=== PATIENT | male | born 1985 | race Caucasian/White ===

== ENCOUNTER 2017-02-21 20:06 | Emergency (ER) | payer SELFPAY ==
[~2017-02-21] VITALS: Ht 177.8 cm; Wt 81.6 kg
[2017-02-21 20:25] VITALS: BP 132/74
--- NOTE | 2017-02-21 20:30 | PHYS DOC ---
Adult General Chief Complaint Chief Complaint: SKIN PROBLEM HPI HPI Patient is a 31 year old male presents to the emergency department [facility]. Patient was evaluated yesterday by his primary care provider diagnosis poison camilla. He was given a steroid shot and placed on prednisone. Patient states that he wants to make sure he gets his prednisone in custodial. He has no request from the emergency department. The patient is very belligerent, cussing at staff as well as myself. Review of Systems Review of Systems Constitutional: Denies fever or chills [] Eyes: Denies change in visual acuity, redness, or eye pain [] HENT: Denies nasal congestion or sore throat [] Respiratory: Denies cough or shortness of breath [] Cardiovascular: No additional information not addressed in HPI [] GI: Denies abdominal pain, nausea, vomiting, bloody stools or diarrhea [] : Denies dysuria or hematuria [] Musculoskeletal: Denies back pain or joint pain [] Integument: Rash Neurologic: Denies headache, focal weakness or sensory changes [] Endocrine: Denies polyuria or polydipsia [] Physical Exam Physical Exam Constitutional: Well developed, well nourished, no acute distress, non-toxic appearance. [] HENT: Normocephalic, atraumatic, bilateral external ears normal, oropharynx moist, no oral exudates, nose normal. [] Eyes: PERRLA, EOMI, conjunctiva normal, no discharge. [] Neck: Normal range of motion, no tenderness, supple, no stridor. [] Cardiovascular:Heart rate regular rhythm, no murmur [] Lungs & Thorax: Bilateral breath sounds clear to auscultation [] Abdomen: Bowel sounds normal, soft, no tenderness, no masses, no pulsatile masses. [] Skin: Vesicular rash to posterior thorax. There is no surrounding erythema, no induration. Back: No tenderness, no CVA tenderness. [] Extremities: No tenderness, no cyanosis, no clubbing, ROM intact, no edema. [] Neurologic: Alert and oriented X 3, normal motor function, normal sensory function, no focal deficits noted. [] Psychologic: Belligerent, aggressive, causing at staff. He called me a crack head and told me to leave EKG EKG [] Radiology/Procedures Radiology/Procedures [] Course & Med Decision Making Course & Med Decision Making Pertinent Labs and Imaging studies reviewed. (See chart for details) [] Dragon Disclaimer Dragon Disclaimer This electronic medical record was generated, in whole or in part, using a voice recognition dictation system. Departure Departure Impression: Primary Impression: Contact dermatitis Disposition: 01 HOME, SELF-CARE Condition: STABLE [facility] Patient Instructions: Contact Dermatitis Problem Qualifiers Primary Impression: Contact dermatitis Contact dermatitis type: allergic Contact dermatitis trigger: unspecified trigger Qualified Codes: L23.9 - Allergic contact dermatitis, unspecified cause VICTOR M MOSER [employer] DIRECT[employer] Feb 21, 2017 20:30
== END 2017-02-21 20:35 | disposition home or self-care (01) ==
LOC: ER 20:06 → EEVIPCON 20:06 → ER 20:35
DX: L23.9 Allergic contact dermatitis, unspecified cause (principal)
CPT/HCPCS: 99281; 99283